=== PATIENT | male | born 1950 | race Caucasian/White ===

== ENCOUNTER 2020-05-12 11:41 | Observation (INO) ==
[2020-05-12 12:25] LABS: Basophils % 0.7 %; Hematocrit 27.8 % (37.5-50.1); Hemoglobin 9.3 g/dL (12.9-16.9); Immature Granulocytes % 0.9 % (0-4); Lymphocytes # 2.5 K/mcL (0.6-4.6); Lymphocytes % 44.2 %; Mean Corpuscular HGB Conc 33.5 g/dL (31.6-35.5); Mean Corpuscular Hemoglobin 31.3 pg (28.0-33.3); Mean Corpuscular Volume 93.6 fL (83.0-100.0); Mean Platelet Volume 11.7 fL (9.4-12.4); Monocytes # 0.6 K/mcL (0.0-1.3); Monocytes % 10.2 %; Neutrophils # 2.5 K/mcL (1.6-8.9); Platelet Count 170 K/mcL (140-400); Red Blood Count 2.97 M/mcL (4.19-5.50); Red Cell Distribution Width 16.6 % (11.5-14.5); White Blood Count 5.7 K/mcL (4.3-11.1)
[2020-05-12 12:43] LABS: Platelet Estimate Normal (Normal); Reactive Lymphocytes Present (Not Present)
[2020-05-12 12:49] LABS: Alanine Aminotransferase 23 Units/L (7-52); Albumin 3.7 g/dL (3.5-5.7); Albumin/Globulin Ratio 1.4 (1.1-2.2); Alkaline Phosphatase 36 Units/L (34-104); Aspartate Amino Transferase 46 Units/L (13-39); BUN/Creatinine Ratio 16 (6-26); Bilirubin,Direct 0.2 mg/dL (0.0-0.2); Bilirubin,Indirect 0.6 mg/dL (0.0-1.0); Bilirubin,Total 0.8 mg/dL (0.3-1.0); Blood Urea Nitrogen 71 mg/dL (8-23); Carbon Dioxide 25 mEq/L (23-29); Chloride 102 mEq/L (98-107); Globulin 2.6 g/dL (2.4-3.5); Glucose 135 mg/dL (70-105); Osmolality,Calculated 301 (280-300); Potassium 4.5 mEq/L (3.5-5.1); Sodium 134 mEq/L (136-145); Total Protein 6.3 g/dL (6.4-8.9); Troponin I < 0.03 ng/mL (< 0.04); eGFR For African Americans 16 (> 60); eGFR For Non-African Americans 13 (> 60)
[2020-05-12 13:43] LABS: Adenovirus Not Detected (Not Detect); Bordetella Pertussis Not Detected (Not Detect); Chlamydophila pneumoniae Not Detected (Not Detect); Coronavirus 229E Not Detected (Not Detect); Coronavirus HKU1 Not Detected (Not Detect); Coronavirus NL63 Not Detected (Not Detect); Coronavirus OC43 Not Detected (Not Detect); Human Metapneumovirus Not Detected (Not Detect); Human Rhinovirus/Enterovirus Not Detected (Not Detect); Influenza A Subtype 2009 H1 Not Detected (Not Detect); Influenza B Not Detected (Not Detect); Mycoplasma pneumoniae Not Detected (Not Detect); Parainfluenza Virus 1 Not Detected (Not Detect); Parainfluenza Virus 2 Not Detected (Not Detect); Parainfluenza Virus 3 Not Detected (Not Detect); Parainfluenza Virus 4 Not Detected (Not Detect); Respiratory Syncytial Virus Not Detected (Not Detect); SARS-CoV-2 Not Detected (Not Detect)
[2020-05-12] MEDS ORDERED: 0.9 % Sodium Chloride 1,000 ML IVC STA (14:08)
[2020-05-12 14:41] LABS: Amorphous Sediment,Urine Few per hpf (None-Few); Bacteria,Urine Few per hpf (None-Few); Bilirubin,Urine Negative (Negative); Blood,Urine Negative (Negative); Clarity,Urine Turbid (Clear); Color,Urine Yellow (Yellow); Glucose,Urine (UA) Normal (Normal); Ketones,Urine Negative (Negative); Leukocyte Esterase,Urine Negative (Negative); Mucus,Urine Few per lpf (None-Few); Nitrite,Urine Negative (Negative); PH,Urine 5.5 pH Units (5.0-8.0); Protein,Urine 100 mg/dL (Neg-Trace); RBC,Urine 0-3 per hpf (0-3); Specific Gravity,Urine 1.017 (1.010-1.025); Urobilinogen,Urine Normal (Normal); WBC,Urine 0-3 per hpf (0-3)
[2020-05-12] MEDS ORDERED: Naloxone 0.4 MG/ML INJ IVP PRN (15:26)
[2020-05-12] MEDS ORDERED: Ondansetron 4 MG/2 ML VIAL IVP PRN (15:26)
[2020-05-12 16:13] LABS: Creatine Kinase 61 Units/L (30-223); Uric Acid 13.2 mg/dL (2.3-7.6)
[2020-05-12] MEDS ORDERED: Dextrose Gel 15 GM/37.5 ML TUBE PO PRN ×2 (17:03)
[2020-05-12] MEDS ORDERED: D5% in Water 1,000 ML IVC PRN (17:03)
[2020-05-12] MEDS ORDERED: *HR* Dextrose 50 % in Water (Vial) 50 ML VIAL IVP PRN (17:03)
[2020-05-12] MEDS: cefTRIAXone 1,000 MG in Water for inj. (sterile) 10 ML IVP SCH (17:09)
[2020-05-12] MEDS: Azithromycin 250 MG TABLET PO SCH (17:09)
[2020-05-12] MEDS: 0.9 % Sodium Chloride 1,000 ML IVC SCH (17:11)
[2020-05-12 17:21] LABS: C-Reactive Protein 44 mg/L (Less than 10)
[2020-05-12] MEDS: *HR* Heparin 5,000 UNIT/ML VIAL SQ SCH (17:54)
[2020-05-12 19:45] LABS: Bacteria,Urine Few per hpf (None-Few); Bilirubin,Urine Negative (Negative); Blood,Urine Negative (Negative); Clarity,Urine Clear (Clear); Color,Urine Yellow (Yellow); Glucose,Urine (UA) Normal (Normal); Ketones,Urine Negative (Negative); Leukocyte Esterase,Urine Negative (Negative); Mucus,Urine Few per lpf (None-Few); Nitrite,Urine Negative (Negative); PH,Urine 5.5 pH Units (5.0-8.0); Protein,Urine 100 mg/dL (Neg-Trace); RBC,Urine 0-3 per hpf (0-3); Specific Gravity,Urine 1.015 (1.010-1.025); Squamous Epithelial Cell,Urine Few per hpf (None-Few); Urobilinogen,Urine Normal (Normal); WBC,Urine 0-3 per hpf (0-3)
[2020-05-12 20:04] LABS: Protein/Creatinine Ratio,Urine 0.75 mg/mg (0.00-0.20); Sodium, Urine 14.6 mEq/L
[2020-05-13 02:32] LABS: Hematocrit 26.5 % (37.5-50.1); Hemoglobin 8.6 g/dL (12.9-16.9); Mean Corpuscular HGB Conc 32.5 g/dL (31.6-35.5); Mean Corpuscular Hemoglobin 30.7 pg (28.0-33.3); Mean Corpuscular Volume 94.6 fL (83.0-100.0); Mean Platelet Volume 11.8 fL (9.4-12.4); Platelet Count 135 K/mcL (140-400); White Blood Count 4.4 K/mcL (4.3-11.1)
[2020-05-13 02:50] LABS: Complement C3 149 mg/dL (87-200)
[2020-05-13 02:51] LABS: Calcium 8.2 mg/dL (8.6-10.3); Magnesium 1.9 mg/dL (1.6-2.6); Phosphorous 2.7 mg/dL (2.7-4.5)
[2020-05-13 02:54] LABS: % Iron Saturation 11 % (20-55); Iron 35 mcg/dL (65-175); Transferrin 225 mg/dL (203-362)
[2020-05-13 03:11] LABS: Ferritin 1218 ng/mL (20-250)
[2020-05-13 03:49] LABS: Anisocytosis 1+ (Not Present); Hypochromasia Present (Not Present); Lymphocytes # 2.2 K/mcL (0.6-4.6); Monocytes # 0.4 K/mcL (0.0-1.3); Neutrophils # 1.9 K/mcL (1.6-8.9); Platelet Estimate Decreased (Normal); Reactive Lymphocytes Present (Not Present)
[2020-05-13 03:50] LABS: Microcytosis Present (Not Present)
[2020-05-13] MEDS: *HR* Heparin 5,000 UNIT/ML VIAL SQ SCH ×2 (04:57→18:00)
[2020-05-13] MEDS: Insulin LISPRO 300 UNITS/3 ML VIAL SQ SCH ×3 (07:58→16:42)
[2020-05-13] MEDS: cefTRIAXone 1,000 MG in Water for inj. (sterile) 10 ML IVP SCH (08:03)
[2020-05-13] MEDS: 0.9 % Sodium Chloride 1,000 ML IVC SCH ×2 (08:15→15:39)
[2020-05-13] MEDS: Iron Sucrose Complex 200 MG in 0.9 % Sodium Chloride 100 ML IVPB SCH (10:54)
[2020-05-13] MEDS ORDERED: Acetaminophen 325 MG TABLET PO PRN (11:14)
[2020-05-13] MEDS: Azithromycin 250 MG TABLET PO SCH (15:37)
[2020-05-13] MEDS: Metoprolol 100 MG TABLET PO SCH (19:59)
[2020-05-14 03:22] LABS: Basophils % 0.6 %; Hematocrit 25.7 % (37.5-50.1); Hemoglobin 8.8 g/dL (12.9-16.9); Immature Granulocytes % 1.3 % (0-4); Lymphocytes # 2.6 K/mcL (0.6-4.6); Lymphocytes % 49.8 %; Mean Corpuscular HGB Conc 34.2 g/dL (31.6-35.5); Mean Corpuscular Hemoglobin 33.3 pg (28.0-33.3); Mean Corpuscular Volume 97.3 fL (83.0-100.0); Mean Platelet Volume 12.3 fL (9.4-12.4); Monocytes # 0.5 K/mcL (0.0-1.3); Monocytes % 9.6 %; Platelet Count 143 K/mcL (140-400); Red Blood Count 2.64 M/mcL (4.19-5.50); Red Cell Distribution Width 18.6 % (11.5-14.5); Segmented Neutrophils % 38.7 %; White Blood Count 5.2 K/mcL (4.3-11.1)
[2020-05-14 03:43] LABS: Calcium 8.6 mg/dL (8.6-10.3); Potassium 4.6 mEq/L (3.5-5.1)
[2020-05-14 03:59] LABS: Platelet Estimate Slight Decrease (Normal)
[2020-05-14 04:00] LABS: Anisocytosis 1+ (Not Present); Reactive Lymphocytes Present (Not Present)
[2020-05-14] MEDS: *HR* Heparin 5,000 UNIT/ML VIAL SQ SCH (06:17)
[2020-05-14 06:56] VITALS: BP 137/77
[2020-05-14] MEDS: Insulin LISPRO 300 UNITS/3 ML VIAL SQ SCH (07:12)
[2020-05-14] MEDS: Metoprolol 100 MG TABLET PO SCH (09:45)
[2020-05-14] MEDS: cefTRIAXone 1,000 MG in Water for inj. (sterile) 10 ML IVP SCH (09:45)
[2020-05-14] MEDS: Iron Sucrose Complex 200 MG in 0.9 % Sodium Chloride 100 ML IVPB SCH (09:46)
== END 2020-05-14 12:46 | disposition home or self-care (01) ==
LOC: EMEROOARM 11:41 → 2ANU 11:41 → SUATTDRO 15:24 → 2ANU 16:30
PROVIDERS: ADMIT Student in an Organized Health Care Education/Training Program; ATTEND Internal Medicine

== ENCOUNTER 2021-10-24 12:09 | Inpatient (IN) ==
[2021-10-24] MEDS ORDERED: Ondansetron 4 MG/2 ML VIAL IVP PRN (14:41)
[2021-10-24] MEDS ORDERED: *HR* HYDROcodone/Acet 5/325 mg TABLET PO PRN (14:41)
[2021-10-24] MEDS ORDERED: Naloxone 0.4 MG/ML INJ IVP PRN (14:41)
[2021-10-24] MEDS ORDERED: Isovue-370 500 ML BOTTLE IVP ONE (14:46)
[2021-10-24 15:57] LABS: ABG Base Excess 4 mEq/L (-2 to 3); ABG HCO3 29 mEq/L (21-27); ABG Oxygen Saturation 93 % (95-98); ABG PCO2 47 mmHg (35-45); ABG PO2 69 mmHg (85-104); ABG TCO2 31 mEq/L (20-26)
[2021-10-24] MEDS: Ipratropium/Albuterol Neb 3 ML IH SCH ×2 (16:00→20:07)
[2021-10-24] MEDS: Piperacillin/Tazobactam 3.375 GM in 0.9 % Sodium Chloride Mini Bag 100 ML IVPB SCH (18:13)
[2021-10-24] MEDS: *HR* Heparin 5,000 UNIT/ML VIAL SQ SCH (18:14)
[2021-10-24] MEDS: MethylPREDNISolone 40 MG/ML VIAL IVP SCH ×2 (18:14→23:22)
[2021-10-24] MEDS ORDERED: Perit. Dialysis with Dex 2.5 % 12,000 ML PERITONEAL ONE (19:00)
[2021-10-24] MEDS: Furosemide 40 MG/4 ML VIAL IVP SCH (19:45)
[2021-10-24] MEDS: Gentamicin Oint 15 GM TUBE TP SCH (22:14)
[2021-10-25] MEDS: Ipratropium/Albuterol Neb 3 ML IH SCH ×7 (00:14→23:11)
[2021-10-25 03:06] LABS: Hematocrit 27.4 % (37.5-50.1); Hemoglobin 8.6 g/dL (12.9-16.9); Mean Corpuscular HGB Conc 31.4 g/dL (31.6-35.5); Mean Corpuscular Hemoglobin 30.3 pg (28.0-33.3); Mean Corpuscular Volume 96.5 fL (83.0-100.0); Mean Platelet Volume 10.4 fL (9.4-12.4); Platelet Count 235 K/mcL (140-400); Red Blood Count 2.84 M/mcL (4.19-5.50); Red Cell Distribution Width 15.3 % (11.5-14.5); White Blood Count 5.4 K/mcL (4.3-11.1)
[2021-10-25 03:28] LABS: Calcium 9.2 mg/dL (8.6-10.3); Magnesium 2.1 mg/dL (1.6-2.6); Phosphorous 7.8 mg/dL (2.7-4.5)
[2021-10-25] MEDS: *HR* Heparin 5,000 UNIT/ML VIAL SQ SCH ×2 (05:58→16:32)
[2021-10-25] MEDS: Piperacillin/Tazobactam 3.375 GM in 0.9 % Sodium Chloride Mini Bag 100 ML IVPB SCH ×2 (05:59→16:31)
[2021-10-25] MEDS: Furosemide 40 MG/4 ML VIAL IVP SCH ×2 (07:56→20:19)
[2021-10-25] MEDS: MethylPREDNISolone 40 MG/ML VIAL IVP SCH ×2 (07:57→16:32)
[2021-10-25] MEDS ORDERED: *HR* Succinylcholine 200 MG/10 ML VIAL IVP ONE (08:48)
[2021-10-25] MEDS ORDERED: Ondansetron 4 MG/2 ML VIAL ONE (08:48)
[2021-10-25] MEDS ORDERED: Lidocaine -MPF 2% 5 ML VIAL ONE (08:48)
[2021-10-25] MEDS ORDERED: *HR* Rocuronium Bromide 50 MG/5 ML VIAL ONE (08:48)
[2021-10-25] MEDS ORDERED: Lidocaine -MPF 4% 5 ML AMPUL ONE ×2 (08:48→09:42)
[2021-10-25] MEDS ORDERED: *HR* Propofol 200 MG/20 ML VIAL IVP ONE (08:49)
[2021-10-25 08:53] LABS: RBC,Peritoneal Fluid < 2000 RBC/mcL
[2021-10-25 09:14] LABS: Appearance of Peritoneal Fl CLEAR (Clear)
[2021-10-25] MEDS ORDERED: Lidocaine Viscous Oral Soln 15 ML SOLUTION ONE (09:46)
[2021-10-25 09:48] LABS: Basophils,Peritoneal Fluid 0 %; Eosinophils,Peritoneal Fluid 0 %
[2021-10-25] MEDS: Gentamicin Oint 15 GM TUBE TP SCH ×2 (12:27→21:18)
[2021-10-25 17:53] LABS: Appearance of Pleural Fl Clear (Clear)
[2021-10-25 18:04] LABS: RBC,Pleural Fluid < 2000 RBC/mcL
[2021-10-25 18:10] LABS: Glucose,Pleural Fluid 292 mg/dL (No Ref Range); LDH,Pleural Fluid < 25 Units/L (No Ref Range); Total Protein,Pleural Fluid < 2.0 g/dL
[2021-10-25 18:45] LABS: Appearance of Body Fluid Hazy (Clear); Volume of Body Fluid 21 mL
[2021-10-25] MEDS ORDERED: Perit. Dialysis with Dex 2.5 % 12,000 ML PERITONEAL ONE (19:00)
[2021-10-25 20:42] LABS: Basophils,Pleural Fluid 0 %; Eosinophils,Pleural Fluid 0 %; Monocytes,Pleural Fluid 0 %
[2021-10-25] MEDS ORDERED: Acetaminophen 325 MG TABLET PO PRN (21:15)
[2021-10-26] MEDS: MethylPREDNISolone 40 MG/ML VIAL IVP SCH ×4 (00:49→22:54)
[2021-10-26] MEDS: Ipratropium/Albuterol Neb 3 ML IH SCH ×6 (04:13→23:24)
[2021-10-26 05:12] LABS: Basophils % 0.1 %; Hematocrit 28.7 % (37.5-50.1); Hemoglobin 8.9 g/dL (12.9-16.9); Immature Granulocytes % 1.4 % (0-4); Lymphocytes # 0.4 K/mcL (0.6-4.6); Lymphocytes % 3.6 %; Mean Corpuscular Hemoglobin 30.4 pg (28.0-33.3); Mean Platelet Volume 10.7 fL (9.4-12.4); Monocytes # 0.6 K/mcL (0.0-1.3); Monocytes % 5.7 %; Platelet Count 241 K/mcL (140-400); Red Blood Count 2.93 M/mcL (4.19-5.50); Red Cell Distribution Width 15.6 % (11.5-14.5); Segmented Neutrophils % 89.2 %
[2021-10-26 05:18] LABS: Calcium 9.2 mg/dL (8.6-10.3)
[2021-10-26] MEDS: Piperacillin/Tazobactam 3.375 GM in 0.9 % Sodium Chloride Mini Bag 100 ML IVPB SCH ×2 (06:13→18:17)
[2021-10-26] MEDS: *HR* Heparin 5,000 UNIT/ML VIAL SQ SCH ×2 (06:13→18:18)
[2021-10-26] MEDS ORDERED: *HR* Metoprolol 5 MG/5 ML VIAL IVP ONE (06:16)
[2021-10-26 06:35] LABS: Neutrophils # 8.7 K/mcL (1.6-8.9); White Blood Count 9.7 K/mcL (4.3-11.1)
[2021-10-26] MEDS ORDERED: Colchicine 0.6 MG TABLET PO PRN (07:51)
[2021-10-26] MEDS ORDERED: Famotidine 20 MG TABLET PO SCH (09:00)
[2021-10-26] MEDS ORDERED: Furosemide 40 MG TABLET PO SCH (09:00)
[2021-10-26] MEDS: hydrALAZINE 25 MG TABLET PO SCH ×3 (09:35→20:50)
[2021-10-26] MEDS: cloNIDine HCL 0.1 MG TABLET PO SCH ×2 (09:35→20:51)
[2021-10-26] MEDS: Metoprolol 100 MG TABLET PO SCH ×3 (09:36→20:51)
[2021-10-26] MEDS: Cholecalciferol (D-3) 1,000 UNIT (25MCG) TABLET PO SCH (09:37)
[2021-10-26] MEDS: Multivit/Ca/Min/Fe/FA 1 TAB TABLET PO SCH (09:37)
[2021-10-26] MEDS: amLODIPine 5 MG TABLET PO SCH ×2 (09:37→11:01)
[2021-10-26] MEDS: allopurinoL 100 MG TABLET PO SCH (09:37)
[2021-10-26] MEDS: Fenofibrate 54 MG TABLET PO SCH (09:38)
[2021-10-26] MEDS: Furosemide 40 MG/4 ML VIAL IVP SCH ×3 (09:39→20:51)
[2021-10-26] MEDS: Budesonide/Formoterol 160/4.5 1 PUFF INH IH SCH (11:00)
[2021-10-26] MEDS: Vitamin B Complex/Vit C/Vit E 1 EACH TABLET PO SCH (11:02)
[2021-10-26] MEDS: Tiotropium 10 INH DOSE IH SCH (11:43)
[2021-10-26] MEDS: Patient Taking Own Medication 1 EACH PO SCH (12:01)
[2021-10-27] MEDS: Ipratropium/Albuterol Neb 3 ML IH SCH ×2 (03:50→07:23)
[2021-10-27] MEDS: *HR* Heparin 5,000 UNIT/ML VIAL SQ SCH ×2 (05:34→18:26)
[2021-10-27] MEDS: Piperacillin/Tazobactam 3.375 GM in 0.9 % Sodium Chloride Mini Bag 100 ML IVPB SCH ×2 (05:34→18:22)
[2021-10-27] MEDS: Tiotropium 10 INH DOSE IH SCH (07:13)
[2021-10-27] MEDS ORDERED: 0.9 % Sodium Chloride 250 ML IVC PRN (07:26)
[2021-10-27] MEDS ORDERED: 0.9 % Sodium Chloride 1,000 ML PRIME SCH (07:30)
[2021-10-27] MEDS ORDERED: Ipratropium/Albuterol Neb 3 ML IH PRN (07:58)
[2021-10-27] MEDS: amLODIPine 5 MG TABLET PO SCH (08:42)
[2021-10-27] MEDS: Multivit/Ca/Min/Fe/FA 1 TAB TABLET PO SCH (08:45)
[2021-10-27] MEDS: hydrALAZINE 25 MG TABLET PO SCH ×3 (08:45→20:43)
[2021-10-27] MEDS: Vitamin B Complex/Vit C/Vit E 1 EACH TABLET PO SCH (08:45)
[2021-10-27] MEDS: Fenofibrate 54 MG TABLET PO SCH (08:45)
[2021-10-27] MEDS: Cholecalciferol (D-3) 1,000 UNIT (25MCG) TABLET PO SCH (08:45)
[2021-10-27] MEDS: cloNIDine HCL 0.1 MG TABLET PO SCH ×2 (08:46→20:44)
[2021-10-27] MEDS: Furosemide 40 MG/4 ML VIAL IVP SCH (08:46)
[2021-10-27] MEDS: allopurinoL 100 MG TABLET PO SCH (08:46)
[2021-10-27] MEDS: Metoprolol 100 MG TABLET PO SCH ×2 (08:46→20:44)
[2021-10-27] MEDS: Gentamicin Oint 15 GM TUBE TP SCH (08:47)
[2021-10-27] MEDS: MethylPREDNISolone 40 MG/ML VIAL IVP SCH ×3 (08:47→23:59)
[2021-10-27] MEDS: Patient Taking Own Medication 1 EACH PO SCH (08:47)
[2021-10-27 10:16] LABS: Basophils % 0.4 %; Hematocrit 28.7 % (37.5-50.1); Hemoglobin 8.9 g/dL (12.9-16.9); Immature Granulocytes % 4.3 % (0-4); Lymphocytes # 0.8 K/mcL (0.6-4.6); Lymphocytes % 9.6 %; Mean Corpuscular Hemoglobin 29.8 pg (28.0-33.3); Mean Platelet Volume 10.8 fL (9.4-12.4); Monocytes # 0.8 K/mcL (0.0-1.3); Monocytes % 9.5 %; Neutrophils # 6.2 K/mcL (1.6-8.9); Platelet Count 226 K/mcL (140-400); Red Blood Count 2.99 M/mcL (4.19-5.50); Red Cell Distribution Width 15.2 % (11.5-14.5); Segmented Neutrophils % 76.2 %; White Blood Count 8.2 K/mcL (4.3-11.1)
[2021-10-27 10:25] LABS: Calcium 9.3 mg/dL (8.6-10.3); Potassium 4.7 mEq/L (3.5-5.1)
[2021-10-27] MEDS ORDERED: Heparin 1,000 UNITS/500 mL 500 ML ONE (10:38)
[2021-10-27] MEDS ORDERED: *HR* Heparin 5,000 UNIT/ML VIAL ONE ×3 (11:09→11:18)
[2021-10-27] MEDS ORDERED: *HR* Heparin 10,000 UNIT/10 ML VIAL IV PRN (14:02)
[2021-10-27] MEDS: Furosemide 40 MG TABLET PO SCH (16:42)
[2021-10-28 02:26] LABS: Basophils % 0.4 %; Hematocrit 27.7 % (37.5-50.1); Hemoglobin 8.8 g/dL (12.9-16.9); Immature Granulocytes % 4.7 % (0-4); Lymphocytes # 0.9 K/mcL (0.6-4.6); Lymphocytes % 10.2 %; Mean Corpuscular HGB Conc 31.8 g/dL (31.6-35.5); Mean Corpuscular Volume 94.5 fL (83.0-100.0); Monocytes % 10.3 %; Neutrophils # 6.8 K/mcL (1.6-8.9); Platelet Count 223 K/mcL (140-400); Red Blood Count 2.93 M/mcL (4.19-5.50); Red Cell Distribution Width 14.8 % (11.5-14.5); Segmented Neutrophils % 74.4 %; White Blood Count 9.2 K/mcL (4.3-11.1)
[2021-10-28 03:05] LABS: Calcium 9.1 mg/dL (8.6-10.3); Potassium 4.9 mEq/L (3.5-5.1)
[2021-10-28] MEDS: Piperacillin/Tazobactam 3.375 GM in 0.9 % Sodium Chloride Mini Bag 100 ML IVPB SCH (05:06)
[2021-10-28] MEDS: *HR* Heparin 5,000 UNIT/ML VIAL SQ SCH ×2 (05:07→17:15)
[2021-10-28] MEDS ORDERED: 0.9 % Sodium Chloride 250 ML IVC PRN (08:01)
[2021-10-28] MEDS ORDERED: *HR* Heparin 10,000 UNIT/10 ML VIAL IV PRN (08:01)
[2021-10-28] MEDS: Tiotropium 10 INH DOSE IH SCH ×2 (08:16→12:54)
[2021-10-28] MEDS: Famotidine 20 MG TABLET PO SCH (12:39)
[2021-10-28] MEDS: Cholecalciferol (D-3) 1,000 UNIT (25MCG) TABLET PO SCH (12:39)
[2021-10-28] MEDS: allopurinoL 100 MG TABLET PO SCH (12:39)
[2021-10-28] MEDS: Vitamin B Complex/Vit C/Vit E 1 EACH TABLET PO SCH (12:39)
[2021-10-28] MEDS: amLODIPine 5 MG TABLET PO SCH (12:40)
[2021-10-28] MEDS: hydrALAZINE 25 MG TABLET PO SCH ×3 (12:40→20:11)
[2021-10-28] MEDS: cloNIDine HCL 0.1 MG TABLET PO SCH ×2 (12:41→20:11)
[2021-10-28] MEDS: Fenofibrate 54 MG TABLET PO SCH (12:41)
[2021-10-28] MEDS: Metoprolol 100 MG TABLET PO SCH (12:41)
[2021-10-28] MEDS: Multivit/Ca/Min/Fe/FA 1 TAB TABLET PO SCH (12:41)
[2021-10-28] MEDS: Patient Taking Own Medication 1 EACH PO SCH (12:42)
[2021-10-28] MEDS: Gentamicin Oint 15 GM TUBE TP SCH (12:44)
[2021-10-28] MEDS: Furosemide 40 MG TABLET PO SCH ×2 (12:52→17:16)
[2021-10-28] MEDS: MethylPREDNISolone 40 MG/ML VIAL IVP SCH (12:52)
[2021-10-28] MEDS: Budesonide/Formoterol 160/4.5 1 PUFF INH IH SCH (13:04)
[2021-10-28] MEDS ORDERED: DESMOPRESSIN ACETATE IVPB ONE (14:30)
[2021-10-28] MEDS ORDERED: SODIUM CHLORIDE 0.9% IVPB ONE (14:30)
[2021-10-28] MEDS ORDERED: *HR* Metoprolol 5 MG/5 ML VIAL IVP ONE ×2 (15:59→16:02)
[2021-10-29] MEDS: *HR* Heparin 5,000 UNIT/ML VIAL SQ SCH ×2 (05:39→17:20)
[2021-10-29 07:07] LABS: Basophils % 0.4 %; Eosinophils % 0.1 %; Hematocrit 25.7 % (37.5-50.1); Hemoglobin 7.7 g/dL (12.9-16.9); Immature Granulocytes % 4.4 % (0-4); Lymphocytes # 1.7 K/mcL (0.6-4.6); Lymphocytes % 20.8 %; Mean Corpuscular Hemoglobin 29.6 pg (28.0-33.3); Mean Corpuscular Volume 98.8 fL (83.0-100.0); Mean Platelet Volume 10.8 fL (9.4-12.4); Monocytes # 1.3 K/mcL (0.0-1.3); Monocytes % 15.3 %; Neutrophils # 4.8 K/mcL (1.6-8.9); Platelet Count 203 K/mcL (140-400); Red Cell Distribution Width 14.9 % (11.5-14.5); White Blood Count 8.2 K/mcL (4.3-11.1)
[2021-10-29 07:13] LABS: INR 1.2
[2021-10-29 07:24] LABS: Calcium 8.9 mg/dL (8.6-10.3); Potassium 4.6 mEq/L (3.5-5.1)
[2021-10-29] MEDS: Tiotropium 10 INH DOSE IH SCH (08:20)
[2021-10-29] MEDS: Gentamicin Oint 15 GM TUBE TP SCH (09:52)
[2021-10-29] MEDS: Fenofibrate 54 MG TABLET PO SCH (09:52)
[2021-10-29] MEDS: predniSONE 20 MG TABLET PO SCH (09:52)
[2021-10-29] MEDS: hydrALAZINE 25 MG TABLET PO SCH ×3 (09:52→19:49)
[2021-10-29] MEDS: amLODIPine 5 MG TABLET PO SCH (09:53)
[2021-10-29] MEDS: Vitamin B Complex/Vit C/Vit E 1 EACH TABLET PO SCH (09:53)
[2021-10-29] MEDS: Cholecalciferol (D-3) 1,000 UNIT (25MCG) TABLET PO SCH (09:53)
[2021-10-29] MEDS: Patient Taking Own Medication 1 EACH PO SCH (09:53)
[2021-10-29] MEDS: cloNIDine HCL 0.1 MG TABLET PO SCH ×2 (09:53→19:50)
[2021-10-29] MEDS: allopurinoL 100 MG TABLET PO SCH (09:53)
[2021-10-29] MEDS: Multivit/Ca/Min/Fe/FA 1 TAB TABLET PO SCH (09:53)
[2021-10-29] MEDS: Furosemide 40 MG TABLET PO SCH ×2 (09:54→17:20)
[2021-10-29 10:43] LABS: Cholesterol,Body Fluid <4 mg/dL; Fluid Source for Cholesterol PLEURAL FLUID
[2021-10-29] MEDS: Calcium Acetate 667 MG CAPSULE PO SCH (17:21)
[2021-10-30 02:56] LABS: Hematocrit 24.2 % (37.5-50.1); Hemoglobin 7.7 g/dL (12.9-16.9); Mean Corpuscular HGB Conc 31.8 g/dL (31.6-35.5); Mean Corpuscular Hemoglobin 30.6 pg (28.0-33.3); Mean Platelet Volume 10.7 fL (9.4-12.4); Platelet Count 199 K/mcL (140-400); Red Blood Count 2.52 M/mcL (4.19-5.50); Red Cell Distribution Width 14.7 % (11.5-14.5); White Blood Count 8.5 K/mcL (4.3-11.1)
[2021-10-30 03:17] LABS: Calcium 8.9 mg/dL (8.6-10.3)
[2021-10-30 03:26] LABS: Lymphocytes # 1.5 K/mcL (0.6-4.6); Monocytes # 0.7 K/mcL (0.0-1.3); Neutrophils # 6.3 K/mcL (1.6-8.9); Platelet Estimate Normal (Normal)
[2021-10-30] MEDS: *HR* Heparin 5,000 UNIT/ML VIAL SQ SCH ×2 (04:39→18:20)
[2021-10-30] MEDS ORDERED: 0.9 % Sodium Chloride 250 ML IVC PRN (07:39)
[2021-10-30] MEDS ORDERED: 0.9 % Sodium Chloride 1,000 ML PRIME SCH (07:45)
[2021-10-30] MEDS: Tiotropium 10 INH DOSE IH SCH (07:47)
[2021-10-30 09:11] LABS: Prolactin 22.97 ng/mL (3.00-14.70)
[2021-10-30] MEDS ORDERED: *HR* Dextrose 50 % in Water (Syg) 50 ML SYRINGE IVP ONE (12:22)
[2021-10-30] MEDS ORDERED: D5% in Water 1,000 ML IVC PRN (12:40)
[2021-10-30] MEDS ORDERED: Dextrose Gel 15 GM/37.5 ML TUBE PO PRN ×2 (12:40)
[2021-10-30] MEDS ORDERED: *HR* Dextrose 50 % in Water (Syg) 50 ML SYRINGE IVP PRN (12:40)
[2021-10-30] MEDS: Calcium Acetate 667 MG CAPSULE PO SCH ×3 (14:22→18:22)
[2021-10-30] MEDS: Vitamin B Complex/Vit C/Vit E 1 EACH TABLET PO SCH (14:22)
[2021-10-30] MEDS: hydrALAZINE 25 MG TABLET PO SCH ×3 (14:22→21:11)
[2021-10-30] MEDS: allopurinoL 100 MG TABLET PO SCH (14:22)
[2021-10-30] MEDS: Cholecalciferol (D-3) 1,000 UNIT (25MCG) TABLET PO SCH (14:22)
[2021-10-30] MEDS: cloNIDine HCL 0.1 MG TABLET PO SCH ×2 (14:23→21:11)
[2021-10-30] MEDS: Fenofibrate 54 MG TABLET PO SCH (14:23)
[2021-10-30] MEDS: predniSONE 20 MG TABLET PO SCH (14:23)
[2021-10-30] MEDS: Multivit/Ca/Min/Fe/FA 1 TAB TABLET PO SCH (14:24)
[2021-10-30] MEDS: Famotidine 20 MG TABLET PO SCH (14:24)
[2021-10-30] MEDS: amLODIPine 5 MG TABLET PO SCH (14:25)
[2021-10-30] MEDS: Furosemide 40 MG TABLET PO SCH ×2 (14:26→18:23)
[2021-10-30] MEDS: Patient Taking Own Medication 1 EACH PO SCH (14:27)
[2021-10-30] MEDS: Budesonide/Formoterol 160/4.5 1 PUFF INH IH SCH ×5 (14:51→14:55)
[2021-10-30] MEDS: Gentamicin Oint 15 GM TUBE TP SCH (14:55)
[2021-10-30 15:02] LABS: Hepatitis B Surface Antigen Nonreactive (Nonreactive)
[2021-10-30 15:30] LABS: Hepatitis C Virus Antibody Nonreactive (Nonreactive)
[2021-10-30 15:33] LABS: Hepatitis B Core IgM Nonreactive (Nonreactive)
[2021-10-30 15:35] LABS: Hepatitis A Antibody IgM Nonreactive (Nonreactive)
[2021-10-31 02:58] LABS: Hematocrit 26.5 % (37.5-50.1); Hemoglobin 8.4 g/dL (12.9-16.9); Mean Corpuscular HGB Conc 31.7 g/dL (31.6-35.5); Mean Corpuscular Hemoglobin 29.9 pg (28.0-33.3); Mean Corpuscular Volume 94.3 fL (83.0-100.0); Mean Platelet Volume 10.6 fL (9.4-12.4); Monocytes # 0.5 K/mcL (0.0-1.3); Platelet Count 194 K/mcL (140-400); Red Blood Count 2.81 M/mcL (4.19-5.50); Red Cell Distribution Width 14.5 % (11.5-14.5); White Blood Count 6.5 K/mcL (4.3-11.1)
[2021-10-31 03:20] LABS: Calcium 8.8 mg/dL (8.6-10.3); Phosphorous 7.6 mg/dL (2.7-4.5); Potassium 4.7 mEq/L (3.5-5.1)
[2021-10-31 03:38] LABS: Lymphocytes # 1.2 K/mcL (0.6-4.6); Neutrophils # 4.8 K/mcL (1.6-8.9); Platelet Estimate Normal (Normal)
[2021-10-31] MEDS: *HR* Heparin 5,000 UNIT/ML VIAL SQ SCH ×2 (05:25→16:35)
[2021-10-31 06:52] VITALS: TEMP 97.9
[2021-10-31] MEDS: Tiotropium 10 INH DOSE IH SCH (07:34)
[2021-10-31] MEDS: Vitamin B Complex/Vit C/Vit E 1 EACH TABLET PO SCH (08:29)
[2021-10-31] MEDS: Calcium Acetate 667 MG CAPSULE PO SCH ×3 (08:29→16:34)
[2021-10-31] MEDS: Fenofibrate 54 MG TABLET PO SCH (08:30)
[2021-10-31] MEDS: hydrALAZINE 25 MG TABLET PO SCH ×2 (08:30→16:35)
[2021-10-31] MEDS: Furosemide 40 MG TABLET PO SCH ×2 (08:30→16:35)
[2021-10-31] MEDS: predniSONE 20 MG TABLET PO SCH (08:31)
[2021-10-31] MEDS: Cholecalciferol (D-3) 1,000 UNIT (25MCG) TABLET PO SCH (08:31)
[2021-10-31] MEDS: amLODIPine 5 MG TABLET PO SCH (08:32)
[2021-10-31] MEDS: Gentamicin Oint 15 GM TUBE TP SCH (08:35)
[2021-10-31] MEDS: cloNIDine HCL 0.1 MG TABLET PO SCH (08:35)
[2021-10-31] MEDS: Multivit/Ca/Min/Fe/FA 1 TAB TABLET PO SCH (08:36)
[2021-10-31] MEDS: allopurinoL 100 MG TABLET PO SCH (08:36)
[2021-10-31 10:21] VITALS: O2SAT 92
[2021-10-31 10:52] VITALS: PULSE 67
[2021-10-31 11:56] VITALS: BP 138/60
[2021-10-31] MEDS: Patient Taking Own Medication 1 EACH PO SCH (15:25)
[2021-11-01] MEDS ORDERED: Famotidine 20 MG TABLET PO SCH (21:00)
== END 2021-10-31 17:15 | disposition home or self-care (01) | DRG 193 ==
LOC: 3NENU → SUATTDRO 14:42
PROVIDERS: ADMIT Internal Medicine; ATTEND Internal Medicine
PROC: IRPERMA (2021-10-27 12:00)

== ENCOUNTER 2022-04-04 15:48 | Observation (INO) ==
[2022-04-04] MEDS ORDERED: Acetaminophen 325 MG TABLET PO PRN (19:51)
[2022-04-04] MEDS ORDERED: Ondansetron ODT 4 MG TAB.RAPDIS SL PRN (19:51)
[2022-04-04] MEDS ORDERED: Naloxone 0.4 MG/ML INJ IVP PRN (19:51)
[2022-04-04] MEDS ORDERED: *HR* HYDROcodone/Acet 5/325 mg TABLET PO PRN (19:51)
[2022-04-04] MEDS ORDERED: Melatonin 3 MG TABLET PO PRN (19:51)
[2022-04-04] MEDS ORDERED: *HR* OxyCODONE Immed Rel 5 MG TABLET PO PRN (19:51)
[2022-04-04] MEDS ORDERED: *HR* Labetalol 20 MG/4 ML SYRINGE IVP ONE (19:56)
[2022-04-04] MEDS ORDERED: 0.9 % Sodium Chloride 1,000 ML IVC SCH (20:00)
[2022-04-04] MEDS ORDERED: SULFUR HEXAFLUORIDE MICROSPHR 25 MG VIAL IVP PRN (20:17)
[2022-04-04] MEDS: Furosemide 40 MG TABLET PO SCH (20:18)
[2022-04-04 22:45] LABS: Adenovirus Not Detected (Not Detect); Bordetella Pertussis Not Detected (Not Detect); Chlamydophila pneumoniae Not Detected (Not Detect); Coronavirus 229E Not Detected (Not Detect); Coronavirus HKU1 Not Detected (Not Detect); Coronavirus NL63 Not Detected (Not Detect); Coronavirus OC43 Not Detected (Not Detect); Human Metapneumovirus Not Detected (Not Detect); Human Rhinovirus/Enterovirus Not Detected (Not Detect); Influenza A Subtype 2009 H1 Not Detected (Not Detect); Influenza B Not Detected (Not Detect); Mycoplasma pneumoniae Not Detected (Not Detect); Parainfluenza Virus 1 Not Detected (Not Detect); Parainfluenza Virus 2 Not Detected (Not Detect); Parainfluenza Virus 3 Not Detected (Not Detect); Parainfluenza Virus 4 Not Detected (Not Detect); Respiratory Syncytial Virus Not Detected (Not Detect); SARS-CoV-2 Not Detected (Not Detect)
[2022-04-05 03:43] LABS: Hematocrit 32.3 % (37.5-50.1); Hemoglobin 10.2 g/dL (12.9-16.9); Mean Corpuscular HGB Conc 31.6 g/dL (31.6-35.5); Mean Corpuscular Hemoglobin 31.1 pg (28.0-33.3); Mean Corpuscular Volume 98.5 fL (83.0-100.0); Mean Platelet Volume 10.4 fL (9.4-12.4); Platelet Count 199 K/mcL (140-400); Red Blood Count 3.28 M/mcL (4.19-5.50); Red Cell Distribution Width 14.1 % (11.5-14.5); White Blood Count 5.8 K/mcL (4.3-11.1)
[2022-04-05 03:53] LABS: INR 1.1; Prothrombin Time 12.4 Seconds (9.4-12.1)
[2022-04-05 04:06] LABS: Magnesium 1.8 mg/dL (1.6-2.6); Phosphorous 4.9 mg/dL (2.7-4.5)
[2022-04-05 04:19] LABS: Albumin 3.7 g/dL (3.5-5.7); Albumin/Globulin Ratio 1.5 (1.1-2.2); Bilirubin,Total 0.4 mg/dL (0.3-1.0); Calcium 8.8 mg/dL (8.6-10.3); Chol/HDL Ratio 5.2 (0-4.9); Globulin 2.4 g/dL (2.4-3.5); Total Protein 6.1 g/dL (6.4-8.9); Troponin I 0.08 ng/mL (< 0.04)
[2022-04-05 04:35] LABS: Vitamin B12 > 1500 pg/mL (250-1100)
[2022-04-05] MEDS: Furosemide 40 MG TABLET PO SCH (08:36)
[2022-04-05] MEDS ORDERED: allopurinoL 100 MG TABLET PO SCH (09:00)
[2022-04-05] MEDS ORDERED: Aspirin 81 MG TAB.CHEW PO SCH (09:00)
[2022-04-05] MEDS ORDERED: amLODIPine 5 MG TABLET PO SCH (09:00)
[2022-04-05 12:05] VITALS: PULSE 51; TEMP 98.2; O2SAT 93
[2022-04-05 13:01] LABS: Estimated Average Glucose 74 mg/dl; Hemoglobin A1C 4.2 %
[2022-04-05 14:17] VITALS: BP 165/62
[2022-04-05] MEDS ORDERED: hydrALAZINE 25 MG TABLET PO SCH (16:00)
== END 2022-04-05 16:10 | disposition home or self-care (01) ==
LOC: 2ANU → SUATTDRO 19:18
PROVIDERS: ADMIT Internal Medicine; ATTEND Internal Medicine

== ENCOUNTER 2022-06-26 06:11 | Inpatient (IN) ==
[2022-06-26] MEDS ORDERED: CeFAZolin Syr 2,000MG/20 ML 2,000 MG/20 ML SYRINGE IVPB ONE (06:25)
[2022-06-26] MEDS ORDERED: Ringers Solution, Lactated 1,000 ML IVC SCH (06:30)
[2022-06-26] MEDS ORDERED: 0.9 % Sodium Chloride 1,000 ML IVC SCH (06:45)
[2022-06-26] MEDS ORDERED: Heparin 1,000 UNITS/500 mL 2,000 ML ONE (07:07)
[2022-06-26] MEDS ORDERED: Iopamidol - 300 100 ML INFUS..BTL ONE (07:09)
[2022-06-26] MEDS ORDERED: Iopamidol - 300 50 ML VIAL ONE ×2 (07:09→10:09)
[2022-06-26] MEDS ORDERED: Protamine Sulfate 50 MG/5 ML VIAL IVP ONE (07:10)
[2022-06-26] MEDS ORDERED: Sugammadex Sodium 200 MG/2 ML VIAL IV ONE ×2 (07:14→11:07)
[2022-06-26] MEDS ORDERED: Lidocaine -MPF 2% 2 ML VIAL ONE (07:14)
[2022-06-26] MEDS ORDERED: *HR* Propofol 200 MG/20 ML VIAL IVP ONE (07:14)
[2022-06-26] MEDS ORDERED: *HR* Succinylcholine 200 MG/10 ML VIAL IVP ONE (07:14)
[2022-06-26] MEDS ORDERED: *HR* Rocuronium Bromide 50 MG/5 ML VIAL ONE ×2 (07:14→09:10)
[2022-06-26] MEDS ORDERED: *HR* FentaNYL (PF) 100 MCG/2 ML VIAL ONE (07:14)
[2022-06-26] MEDS ORDERED: Ondansetron 4 MG/2 ML VIAL ONE (07:14)
[2022-06-26] MEDS ORDERED: Ondansetron 4 MG/2 ML VIAL IVP PRN ×2 (07:23→13:15)
[2022-06-26] MEDS ORDERED: *HR* FentaNYL (PF) 100 MCG/2 ML VIAL IVP PRN (07:23)
[2022-06-26] MEDS ORDERED: Albuterol 2.5 MG/3 ML NEBULIZER IH PRN (07:23)
[2022-06-26] MEDS ORDERED: NiCARdipine 2.5 MG/10 ML Syringe IVPB ONE (07:28)
[2022-06-26] MEDS ORDERED: *HR* Vasopressin 20 UNIT/ML VIAL ONE (07:28)
[2022-06-26] MEDS ORDERED: 0.9 % Sodium Chloride 500 ML IVC SCH ×2 (07:38→07:45)
[2022-06-26] MEDS ORDERED: ceFAZolin 1,000 MG, Sodium Chloride IRRigation 1,000 ML IR ONE (07:45)
[2022-06-26] MEDS ORDERED: EPHEDrine sulfate 50 MG/10 ML VIAL IVP ONE (08:30)
[2022-06-26] MEDS ORDERED: *HR* OxyCODONE Immed Rel 5 MG TABLET PO PRN (13:15)
[2022-06-26] MEDS ORDERED: Acetaminophen 325 MG TABLET PO PRN (13:15)
[2022-06-26] MEDS ORDERED: *HR* HYDROcodone/Acet 5/325 mg TABLET PO PRN (13:15)
[2022-06-26] MEDS ORDERED: Naloxone 0.4 MG/ML INJ IVP PRN (13:15)
[2022-06-26] MEDS: ceFAZolin 2,000 MG in 0.9 % Sodium Chloride 100 ML IVPB SCH ×2 (18:04→23:46)
[2022-06-26] MEDS: hydrALAZINE 25 MG TABLET PO SCH (18:34)
[2022-06-26] MEDS ORDERED: HYDRALAZINE HCL 100 MG PO SCH (21:00)
[2022-06-27] MEDS: *HR* Labetalol 20 MG/4 ML SYRINGE IVP PRN ×3 (01:31→05:56)
[2022-06-27 05:25] LABS: Hematocrit 31.4 % (37.5-50.1); Hemoglobin 9.8 g/dL (12.9-16.9); Mean Corpuscular HGB Conc 31.2 g/dL (31.6-35.5); Mean Corpuscular Hemoglobin 30.2 pg (28.0-33.3); Mean Corpuscular Volume 96.6 fL (83.0-100.0); Platelet Count 250 K/mcL (140-400); Red Blood Count 3.25 M/mcL (4.19-5.50); Red Cell Distribution Width 14.6 % (11.5-14.5); White Blood Count 11.4 K/mcL (4.3-11.1)
[2022-06-27 05:43] LABS: Albumin 3.5 g/dL (3.5-5.7); Calcium 8.7 mg/dL (8.6-10.3); Phosphorous 6.2 mg/dL (2.7-4.5); Potassium 4.1 mEq/L (3.5-5.1)
[2022-06-27] MEDS ORDERED: 0.9 % Sodium Chloride 250 ML IVC PRN (07:43)
[2022-06-27] MEDS ORDERED: 0.9 % Sodium Chloride 2,000 ML PRIME SCH (07:45)
[2022-06-27] MEDS ORDERED: allopurinoL 100 MG TABLET PO SCH (09:00)
[2022-06-27] MEDS ORDERED: Aspirin 81 MG TAB.CHEW PO SCH (09:00)
[2022-06-27] MEDS ORDERED: amLODIPine 5 MG TABLET PO SCH (09:00)
[2022-06-27] MEDS: hydrALAZINE 25 MG TABLET PO SCH (09:06)
[2022-06-27 10:41] LABS: Hepatitis B Surface Antibody 7.73 mIU/mL
[2022-06-27 10:51] LABS: Hepatitis B Surface Antigen Nonreactive (Nonreactive)
[2022-06-27] MEDS ORDERED: *HR* Heparin 10,000 UNIT/10 ML VIAL IV PRN (12:06)
[2022-06-27 14:09] VITALS: O2SAT 95
[2022-06-27 14:10] VITALS: PULSE 61
[2022-06-27 16:14] VITALS: BP 160/78; TEMP 98.3
== END 2022-06-27 19:17 | disposition home or self-care (01) | DRG 268 ==
LOC: SAMDAY 06:11 → 2NNU 13:15
PROVIDERS: ADMIT Surgery Vascular Surgery; ATTEND Surgery Vascular Surgery